=== PATIENT | female | born 1965 | race Caucasian/White ===

== ENCOUNTER 2017-01-05 05:41 | Day surgery (SDC) | payer BC ==
--- NOTE | ~2017-01-05 | EGD ---
EGD REPORT [facility] [address] [id number] NAME: CHLOE LEWIS : 67 STATUS : REG [facility]#: [id number] AGE: 51 ADM/REG DATE : 01/05/17 MR#: [id number] REPORT SERV DATE: 01/05/17 DICTATED BY: MICHAEL CAMPOS DATE: 01/05/17 REPORT STATUS : Draft TRANSCRIBED BY: [facility] DATE: 01/05/17 [facility] Patient Name: Chloe Lewis Date of : 1965 Attending MD: MICHAEL CAMPOS, Procedure Date No Time: 01/05/2017 Procedure: Upper GI endoscopy Indications: Esophageal reflux symptoms that recur despite appropriate therapy, Follow-up of intestinal metaplasia Referring MD: ALMA UMANA Medicines: Propofol per Anesthesia Complications: No immediate complications. Estimated blood loss: None. Procedure: Pre-Anesthesia Assessment: - ASA Grade Assessment: II - A patient with mild systemic disease. After obtaining informed consent, the endoscope was passed under direct vision. Throughout the procedure, the patient's blood pressure, pulse, and oxygen saturations were monitored continuously. The GIF [id number] was introduced through the mouth, and advanced to the second part of duodenum. The upper GI endoscopy was accomplished with ease. The patient tolerated the procedure well. Findings: The examined esophagus was normal. The Z-line was found 40 cm from the incisors. Mild inflammation characterized by erythema was found in the gastric antrum. Multiple biopsies were obtained in the gastric fundus, on the greater curvature of the gastric body, on the lesser curvature of the gastric body and in the gastric antrum with cold forceps for histology (intestinal metaplasia +/- dysplasia). Estimated blood loss: none. The duodenal bulb and 2nd part of the duodenum were normal. Impression: - Normal esophagus. - Z-line 40 cm from the incisors. - Gastritis. - Normal duodenal bulb and 2nd part of the duodenum. - Multiple biopsies were obtained in the gastric fundus, in the gastric body (greater curvature), in the gastric body (lesser curvature) and in the gastric antrum. Recommendation: - Patient has a contact number available for emergencies. The signs and symptoms of potential delayed EGD REPORT [address] [place]. [address] NAME: CHLOE LEWIS : [birth year] STATUS : REG [facility] [place] PAT#: [id number] AGE: 51 ADM/REG DATE : 01/05/17 MR#: [id number] REPORT SERV DATE: 01/05/17 DICTATED BY: MICHAEL CAMPOS DATE: 01/05/17 REPORT STATUS : Draft TRANSCRIBED BY: [facility]Available[facility]ARC[facility] DATE: 01/05/17 complications were discussed with the patient. Return to normal activities tomorrow. Written discharge instructions were provided to the patient. - Regular diet. - Discharge patient to home (with escort). - Follow an antireflux regimen. - Continue present medications. - Await pathology results. - Return to GI clinic in 4 weeks. Procedure Code(s): --- Professional --- 35523, Esophagogastroduodenoscopy, flexible, transoral; with biopsy, single or multiple Diagnosis Code(s): --- Professional --- K29.70, Gastritis, unspecified, without bleeding K21.9, Gastro-esophageal reflux disease without esophagitis K31.89, Other diseases of stomach and duodenum CPT copyright 2013 [employer]. All rights reserved. The codes documented in this report are preliminary and upon health information coder review may be revised to meet current compliance requirements. MICHAEL CAMPOS, 01/05/2017 7:27 AM This report has been signed electronically. Number of Addenda: 0 Note Initiated On: 01/05/2017 7:00 AM Scope Withdrawal Time 0 hours 0 minutes 0 seconds [address] [id number]
[~2017-01-05 05:41] MED LIST: *DENIES; EFFEXXR37 PO; LEVOTHYROXIN100 MCG PO; METHIMAZOLE5 MG OR; NEXIUM40 PO; SYN.05 PO; TRAZ50 PO
== END 2017-01-05 23:59 | disposition home or self-care (01) ==
LOC: DMU 05:41
PROVIDERS: Internal Medicine Gastroenterology
PROC: 0DB68ZX Excision of Stomach, Via Natural or Artificial Opening Endoscopic, Diagnostic (ICD-10-PCS; principal; 2017-01-05 07:30)
DX: K29.70 Gastritis, unspecified, without bleeding (principal); K21.9 Gastro-esophageal reflux disease without esophagitis; K31.89 Other diseases of stomach and duodenum; I34.1 Nonrheumatic mitral (valve) prolapse; E06.3 Autoimmune thyroiditis; E03.9 Hypothyroidism, unspecified; M79.7 Fibromyalgia; M19.90 Unspecified osteoarthritis, unspecified site; G43.909 Migraine, unspecified, not intractable, without status migrainosus; E89.0 Postprocedural hypothyroidism; Z88.0 Allergy status to penicillin; Z88.2 Allergy status to sulfonamides; Z88.5 Allergy status to narcotic agent; Z90.710 Acquired absence of both cervix and uterus; Z90.49 Acquired absence of other specified parts of digestive tract; Z79.899 Other long term (current) drug therapy
CPT/HCPCS: 88305